=== PATIENT | female | born 1995 | race Hispanic/Latino ===

== ENCOUNTER 2019-10-27 20:21 | Emergency (ER) | payer MEDICAID, OTHER ==
[2019-10-27] MEDS ORDERED: TETANUS/DIPHTHERIA TOXOID [ADULT] 0.5 ML VIAL IM ONE (21:59)
[2019-10-27] MEDS ORDERED: CEFTRIAXONE SODIUM 1 GM ONE (22:07)
[2019-10-27] MEDS ORDERED: LIDOCAINE HCL-MPF 1% 2ML VIAL ONE (22:07)
== END 2019-10-27 22:27 | disposition home or self-care (01) ==
LOC: EDH 20:21
DX: S01.81XA Laceration without foreign body of other part of head, initial encounter (principal); S61.412A Laceration without foreign body of left hand, initial encounter; L02.512 Cutaneous abscess of left hand; Z72.0 Tobacco use; X99.8XXA Assault by other sharp object, initial encounter; Y93.89 Activity, other specified; Y92.89 Other specified places as the place of occurrence of the external cause; Y99.8 Other external cause status
CPT/HCPCS: 12042; 12052; 70150; 73130; 90471; 90714; 96372; 99285; J0696; J3490